=== PATIENT | female | born 1970 | race Caucasian/White ===

== ENCOUNTER 2021-03-01 23:04 | Emergency (ER) | payer MEDICAID, OTHER ==
[~2021-03-01] VITALS: Ht 165.1 cm; Wt 86.7 kg
--- NOTE | 2021-03-01 23:25 | NUR ---
pt c/o bilateral LE swelling, states she can feel her HR increase as well. pt denies CP/SOB, states she has not taken her medications in awhile. pt a&o, resps even and unlabored, vss, nadn. bilat LE edema noted.
--- NOTE | 2021-03-01 23:38 | NUR ---
erpa at bedside for eval
[2021-03-01] MEDS ORDERED: PLEASE ENTER ALLERGIES MC SCH (23:45)
[2021-03-01] MEDS ORDERED: ACETAMINOPHEN 500 MG TABLET ONE (23:49)
[2021-03-01 23:53] LABS: BASOPHILS % (AUTO) 2 % (0-1); EOSINOPHILS % (AUTO) 4 % (1-7); LYMPHOCYTES % (AUTO) 23 % (22-44); MEAN CORPUSCULAR HEMOGLOBIN 20.8 pg (27.0-34.8); MEAN CORPUSCULAR HGB CONC 30.4 g/dL (32.4-35.8); MEAN PLATELET VOLUME 8.2 fL (7.4-10.4); MONOCYTES % (AUTO) 10 % (2-9); NEUTROPHILS % (AUTO) 61 % (42-75); PLATELET COUNT 219 x10^3/uL (130-400); RED BLOOD COUNT 4.21 x10^6/uL (3.82-5.3); RED CELL DISTRIBUTION WIDTH 20.9 % (9.6-15.2)
[2021-03-02] MEDS ORDERED: ACETAMINOPHEN 500 MG TABLET PO ONE
--- NOTE | 2021-03-02 | NUR ---
pt refusing meds at this time.
[2021-03-02 00:01] LABS: ALBUMIN 3.1 g/dL (3.4-5.0); ANION GAP 7 mmol/L (5-15); CALCIUM 8.3 mg/dL (8.5-10.1); CHLORIDE 113 mmol/L (98-107)
[2021-03-02 00:05] LABS: TROPONIN I < 0.015 ng/mL (0.000-0.045)
[2021-03-02 00:32] LABS: ANISOCYTOSIS 1+; HYPOCHROMIA 1+; MICROCYTOSIS 1+; OVALOCYTES 1+; POLYCHROMASIA 1+; TARGET CELLS 1+
[2021-03-02 00:33] LABS: <PLATELET ESTIMATE> ADEQUATE; <PLT MORPHOLOGY> NORMAL PLT MORPH
[2021-03-02 01:10] VITALS: BP 128/83
[2021-03-02] MEDS ORDERED: FUROSEMIDE 40 MG TABLET PO ONE (01:42)
[2021-03-02] MEDS ORDERED: FUROSEMIDE 40 MG TABLET ONE (01:46)
--- NOTE | 2021-03-02 01:56 | NUR ---
pt medicated per sep, educated on dc instructions, verbalized understanding.
== END 2021-03-02 02:10 | disposition home or self-care (01) ==
LOC: ED 23:59
DX: R07.89 Other chest pain (principal); R06.02 Shortness of breath; I50.9 Heart failure, unspecified; R60.0 Localized edema; Z72.9 Problem related to lifestyle, unspecified; F15.10 Other stimulant abuse, uncomplicated; R00.0 Tachycardia, unspecified; Z87.891 Personal history of nicotine dependence
CPT/HCPCS: 36415; 71045; 80048; 82040; 83880; 84484; 85025; 93005; 93970; 99285